=== PATIENT | female | born 1975 | race Caucasian/White ===

== ENCOUNTER 2024-08-03 12:59 | Emergency (ER) | payer OTHER, SELFPAY ==
[2024-08-03 12:59] VITALS: BP 142/102; PULSE 190; RESP 22; TEMP 37.2; O2SAT 99
--- OUTSIDE RECORDS SUMMARY | 2024-08-03 13:01 | XMS_ITS | Referral Summary ---
Author Organization [facility] Address [address] [place] [address] Care Team Providers Care Truck Washer Name Role Phone Matt Blount MD Primary Care Provider [phone] Allergies No known active allergies Medications traMADoL (ULTRAM) 50 mg tabletIndicatio ns:Pain Take 1 tablet (50 mg total) by mouth every 4 (four) hours as needed for pain 42 tablet 1 Active acetaminophen 500 mg capsule Take 2 capsules (1,000 mg total) by mouth every 6 (six) hours 30 tablet 1 Active cyclobenzaprine (FLEXERIL) 10 mg tabletIndicatio ns:Muscle Spasm Take 1 tablet (10 mg total) by mouth 3 (three) times a day as needed for muscle spasms 40 tablet 1 Active senna-docusate (PERICOLACE) 8.6-50 mg Take 2 tablets by mouth 2 (two) times a day 60 tablet 1 Active aspirin 325 mg tablet Take 1 tablet (325 mg total) by mouth daily for 14 days 14 tablet [address] (NexIUM) 40 mg capsule Take 1 capsule (40 mg total) by mouth daily before breakfast for 14 days To protect stomach while taking aspirin. 14 capsule 1 Active levonorgestreL (Mirena) IUD Mirena (52 MG) 20 MCG/24HR Intrauterine Intrauterine device QTY: 0 Days: 0 Refills: 0 Written: 08/24/17 Patient Instructions: 8 Active tobramycin (TOBREX) 0.3 % ophthalmic solution Administer 1-2 drops into affected eye(s) every 4 (four) hours 0 Active lisinopril-hydr oCHLOROthiazide (ZESTORETIC) 10-12.5 mg per tablet TK 1 T PO QD 9 Active atorvastatin (LIPITOR) 20 mg tablet 1 Active olmesartan-hydr ochlorothiazide (BENICAR HCT) 20-12.5 mg per tablet 1 Active amoxicillin 500 mg capsule Take 500 mg by mouth 2 (two) times a day 1 Active Ozempic 0.25 mg or 0.5 mg(2 mg/1.5 mL) pen injector injection INJECT 0.25 MG UNDER THE SKIN EVERY WEEK ON THE SAME DAY OF EACH WEEK 2 Active Active Problems Problem Noted Date Diagnosed Date Left medial tibial plateau fracture 08/26/2020 Tibial plateau fracture, left 08/25/2020 Overview (08/26/2020): Added automatically from request for surgery [id number] Heel spur 07/19/2015 Plantar fasciitis, right 07/19/2015 Immunizations Immunization Administration Dates Next Due Influenza, Trivalent, IM (MDV) 01/14/2016 Tdap 08/26/2020,01/06/2013 Social History Tobacco Use Types Packs/Day Years Used Date Smoking Tobacco: Every Day Cigarettes Comments:about 4 cigarettes a day Alcohol Use Standard Drinks/Week Comments No 0 (1 standard drink = 0.6 oz pur e alcohol) AUDIT-C Answer Date Recorded Q1: How often do you have a drink containing alc ohol? Monthly or less 08/26/2020 Q2: How many drinks containi ng alcohol do you have on a typical day when you are drinking? 1 or 2 08/26/2020 Q3: How often do you have si x or more drinks on one occasion? 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 Gender Identity Not on file Sexual Orientation Not on file Last Filed Vital Signs Vital Sign Reading Time Taken Comments Blood Pressure 121/60 08/26/2020 11:30 PM CDT Pulse 77 08/26/2020 11:30 PM CDT Temperature 37.1 C (98.8 F) 08/26/2020 11:30 PM CDT Respiratory Rate 18 08/26/2020 11:30 PM CDT Oxygen Saturation 99% 08/26/2020 11:30 PM CDT Inhaled Oxygen Concentration - - Weight 104.3 kg (230 lb) 08/25/2020 11:35 PM CDT Height 157.5 cm (5' 2) 08/25/2020 11:35 PM CDT Body Mass Index 42.07 08/25/2020 11:35 PM CDT Plan of Treatment Not on file Medical Devices Implanted Type Area Manager Credit Device Identifier Shelf Expiration Date Model / Serial / Lot [employer]/ Ortho [id number] Evos 3.5mm 36mm Self Tap Cortex Screw Bone Sterile - [id number] Implanted:Qty: 2 on 08/26/2020 by Elaine Mcgregor MD at [facility] Left: Tibia [employer]/Or tho [id number] / / [employer]/ Ortho [id number] Evos 3.5mm 42mm Self Tap Lock Screw Bone Sterile - [id number] Implanted:Qty: 1 on 08/26/2020 by Elaine Mcgregor MD at [facility] Left: Tibia [employer]Or tho [id number] / / [employer]/ Ortho [id number] Evos 117mm 8 Hole Tibia Left Proximal Medial Plate Bone Sterile - [id number] Implanted:Qty: 1 on 08/26/2020 by Elaine Mcgregor MD at [facility] Left: Tibia [employer]/Or tho [id number] / / [employer]/ Ortho [id number] Evos 3.5mm 38mm Self Tap Cortex Screw Bone Sterile - [id number] Implanted:Qty: 1 on 08/26/2020 by Elaine Mcgregor MD at [facility] Left: Tibia [employer]/Or tho [id number] / / [employer]/ Ortho [id number] Evos 3.5mm 50mm Self Tap Cortex Screw Bone Sterile - [id number] Implanted:Qty: 2 on 08/26/2020 by Elaine Mcgregor MD at [facility] Left: Tibia [employer]/Or tho [id number] / / [employer]/ Ortho [id number] Evos 3.5mm 24mm Self Tap Cortex Screw Bone Sterile - [id number] Implanted:Qty: 1 on 08/26/2020 by Elaine Mcgregor MD at [facility] Left: Tibia [employer]Or tho [id number] / / [employer]/ Ortho [id number] Evos 3.5mm 60mm Self Tap Lock Screw Bone Sterile - [id number] Implanted:Qty: 2 on 08/26/2020 by Elaine Mcgregor MD at [facility] Left: Tibia [employer]Or tho [id number] / / [employer]/ Ortho [id number] Evos 3.5mm 65mm Self Tap Lock Screw Bone Sterile - [id number] Implanted:Qty: 1 on 08/26/2020 by Elaine Mcgregor MD at [facility] Left: Tibia [employer]Or tho [id number] / / [employer]/ Ortho [id number] Evos 3.5mm 50mm Self Tap Lock Screw Bone Sterile - [id number] Implanted:Qty: 1 on 08/26/2020 by Elaine Mcgregor MD at [facility] Left: Tibia [employer]/Or tho [id number] / / [employer]/ Ortho [id number] Evos 3.5mm 46mm Self Tap Lock Screw Bone Sterile - [id number] Implanted:Qty: 1 on 08/26/2020 by Elaine Mcgregor MD at [facility] Left: Tibia [employer]/Or tho [id number] / / Explanted Type Area Manager Credit Device Identifier Shelf Expiration Date Model / Serial / Lot [employer] [id number] Isidro .062in 9in 1 Trocar Smooth Wire Fixation - [id number] Explanted:Qty: 1 on 08/26/2020 by Elaine Mcgregor MD at [facility] Left: Tibia [employer] [id number] / / [employer]/O rtho [id number] Evos 3.5mm 55mm Self Tap Cortex Screw Bone Sterile - [id number] Explanted:Qty: 1 on 08/26/[address] [facility] Left: Tibia [employer]Or tho [id number] / / Insurance [facility] CLAIMS OFFICE [facility] [employer] [place] Advance Directives For more information, please contact: [phone] * Full Code (Latest Code Status on File) Date Activated Date Inactivated Comments 08/26/2020 5:43 AM 08/27/2020 5:47 PM Care Teams Truck Washer Relationship Specialty Start Date End Date Matt Blount MD [address] [place] [address] PCP - General 03/31/11
--- OUTSIDE RECORDS SUMMARY | 2024-08-03 13:01 | XMS_ITS ---
Author Organization Unknown Address [address] [place] [phone] Phone Care Team Providers Care Transverse Abdominal Muscle Nurse Name Role Phone ROBERT MONTANEZ Attending Unavailable Immunization Immunization Date Status Additional Notes Code Code System Tdap 01/06/2013 Completed 115 CVX Tdap 08/26/2020 Completed 115 CVX Influenza, split virus, trivalent, preservative 01/14/2016 Completed 141 CVX Influenza, split virus, quadrivalent, PF 12/21/2022 Completed 150 CVX COVID-19, mRNA, LNP-S, PF, 3 0 mcg/0.3 mL dose 02/29/2020 Completed 208 CVX COVID-19, mRNA, LNP-S, PF, 3 0 mcg/0.3 mL dose 03/21/2020 Completed 208 CVX COVID-19, mRNA, LNP-S, PF, 3 0 mcg/0.3 mL dose 02/11/2021 Completed 208 CVX Results COMPREHENSIVE METABOLIC PANE L - Collect Date/Time: 12/06/2023 07:48 [facility] ID: [id number] [place], [place], [id number] LOINC: 83352-4 Test Value Unit Reference Range Code Code System Flag FASTING YES BUN 9 mg/dL L=7 H=20 3094-0 LOINC CREATININE 0.80 mg/dL L=0.52 H=1.04 2160-0 LOINC GLUCOSE 96 mg/dL L=74 H=106 2345-7 LOINC SODIUM 137 mmol/L L=132 H=144 2951-2 LOINC POTASSIUM 3.9 mmol/L L=3.5 H=5.1 2823-3 LOINC CHLORIDE 101 mmol/L L=98 H=107 2075-0 LOINC CO2 26.0 mmol/L L=22.0 H=30.0 8-9 LOINC ANION GAP 14 L=10 H=20 67924-7 LOINC OSMOLALITY 283 mOs/kG L=280 H=296 65731-8 LOINC BUN/CREAT 11.3 3097-3 LOINC CALCIUM 9.8 mg/dL L=8.3 H=10.5 52819-9 LOINC AST 28 U/L L=15 H=46 1920-8 LOINC ALT 26 U/L L=9 H=72 1742-6 LOINC ALKALINE PHOS 52 U/L L=38 H=126 6768-6 LOINC TOTAL BILI 1.1 mg/dL L=0.2 H=1.3 1975-2 LOINC ALBUMIN 4.7 G/dL L=3.5 H=5.0 1751-7 LOINC TOTAL PROTEIN 7.8 g/L L=6.3 H=8.2 2885-2 LOINC A/G RATIO 1.5 13450-4 LOINC AGE 48 77827-8 LOINC eGFR NON-AFR 81 ml/min eGFR AFR AMER 98 ml/min CBC W/ DIFF - Collect Date/T mary: 12/06/2023 07:48 [facility] ID: [id number] [address] [place], [place], [id number] LOINC: 64300-8 Test Value Unit Reference Range Code Code System Flag WBC 6.6 10^3uL L=4.8 H=10.8 RBC 4.33 10^6uL L=4.20 H=5.40 HEMOGLOBIN 13.6 g/dL L=12.0 H=16.0 718-7 LOINC HEMATOCRIT 40.1 VOL% L=37.0 H=47.0 4544-3 LOINC MCV 92.6 fL L=81.0 H=99.0 MCH 31.4 pg L=27.0 H=32.0 MCHC 33.9 g/dL L=32.0 H=36.0 PLATELETS 313 10^3uL L=100 H=400 41192-0 LOINC RDW 12.1 % L=11.7 H=15.5 %GRAN 55.3 % L=40.0 H=70.0 00123-9 LOINC %LYMPH 32.7 % L=20.0 H=45.0 736-9 LOINC %MONO 8.8 % L=2.0 H=10.0 86424-6 LOINC %EOS 2.4 % L=0.0 H=6.0 713-8 LOINC %BASO 0.6 % L=0.0 H=3.0 706-2 LOINC #NEUT 3.6 10^3uL L=1.9 H=7.6 18831-9 LOINC #LYMPH 2.2 10^3uL L=0.9 H=4.9 67894-5 LOINC #MONO 0.6 10^3uL L=0.1 H=0.9 24568-0 LOINC #EOS 0.2 10^3uL L=0.0 H=0.6 712-0 LOINC #BASO 0.04 10^3uL L=0.00 H=0.10 04307-9 LOINC #IM GRANS 0.0 10^3uL L=0.0 H=7.0 25249-2 LOINC %IM GRANS 0.2 % L=0.0 H=5.0 93450-8 LOINC %NRB 0.0 L=0.0 H=0.2 55334-0 LOINC #NRB 0.000 L=0.000 H=0.012 62575-9 LOINC MANUAL DIFF NOT INDICATED RBC MORPH NOT INDICATED LIPID PANEL - Collect Date/T mary: 12/06/2023 07:48 [facility] ID: [id number] [address] [place], [place], [id number] LOINC: 85539-5 Test Value Unit Reference Range Code Code System Flag FASTING YES CHOLESTEROL 122 mg/dL L=0 H=200 3-3 LOINC TRIGLYCERIDE 100 mg/dL L=0 H=150 2571-8 LOINC HDL 32 mg/dL L=40 H=60 2085-9 LOINC L LDL 62 mg/dL 2088-03 LOINC Social History Type Status Start Date End Date Code Code Syst em Sex Female Hospital Discharge Instructions Should you have any questions prior to discharge, please contact a member of your healthcare team. If you have left the hospital and have any questions, please contact your primary care physician. Reason For Referral No Data Found Plan of Treatment No Data Found Encounters Encounter Diagnosis Start Date Code Code Sys tem Mixed hyperlipidemia 12/06/2023 SNOMED- CT Personal Care Team Section Performer Name Performer Role Active Date Inactive LISSETH Peña PCP - Primary care physician 2022-09-11
--- OUTSIDE RECORDS SUMMARY | 2024-08-03 13:01 | XMS_ITS ---
Author Organization Unknown Address [address] [place] [phone] Phone Care Team Providers Care Measurement Psychologist Name Role Phone JOAN Ang Attending Unavailable ROBERT MONTANEZ Primary Unavailable Immunization Immunization Date Status Additional Notes [...] mL dose 02/11/2021 Completed 208 CVX Results DIG 3D SHAHANA SCREENING BILATER AL - Completed: 03/20/2023 15:10 LOINC: See Scanned Image Attachment for Report Dictated By: Trans Initials: [facility] Trans Date: 04/03/23 14:02 <<REPDIST>> Social History Type Status Start Date End [...] Diagnosis Start Date Code Code Sys tem Screening mammography 03/20/2023 [id number] SNOMED -CT Personal Care Team Section Performer Name Performer Role Active Date Inactive LISSETH Peña PCP - Primary care physician 2022-09-11 Imaging Narrative Notes [facility] 04/03/2023 14:02 [facility] [address] [place], [place] [address] RADIOLOGY REPORT Patient Number: [id number] Patient Name: HAYDEN GALARZA Type: O/P MR Number: [id number] : 1975 Age: 48 Sex: F Room #: Admit Date: 03/20/23 Discharge Date 03/20/23 Ordering Physician: JOAN Ang Family Physician: ROBERT GOLDEN [facility] Physician: X-Ray Number : [id number] DIG 3D SHAHANA SCREENING BILATERA 69312 COMPLETE:03/20/23 15:10 [id number] (REASONS-DIG 3D SHAHANA SCREENING BILATERAL: SCREENING See Scanned Image Attachment for Report Dictated By: Perfecto Initials: [place] Date: 04/03/23 14:02 <<REPDIST>>
--- OUTSIDE RECORDS SUMMARY | 2024-08-03 13:01 | XMS_ITS ---
Author Organization Unknown Address [address] [place] [phone] Phone Care Team Providers Care Side Panel Hanger Name Role Phone ROBERT MONTANEZ Attending Unavailable [...] mL dose 02/11/2021 Completed 208 CVX Results QUANTIFERON GOLD SINGLE TUBE - Collect Date/Time: 10/04/2023 08:37 [facility] ID: [id number] [place], [place], [id number] LOINC: 18886-5 Test Value Unit Reference Range Code Code System Flag SOURCE: BLOOD SEND TO [facility]? NO QuantiFERON Incubation Incubation performed. QuantiFERON-TB Gold Plus Negative Negative 65671-0 LOINC QuantiFERON Criteria COMMENT 8251-1 LOINC QuantiFERON TB1 Ag Value 0.11 41314-5 LOINC QuantiFERON TB2 Ag Value 0.11 51899-9 LOINC QuantiFERON Nil Value 0.01 75624-9 LOINC QuantiFERON Mitogen Value >10.00 71907-2 LOINC Social History Type Status Start Date [...] Diagnosis Start Date Code Code Sys tem Encounter for screening for respiratory tuberculosis 0 10/04/2023 SNOMED-CT Personal Care Team Section Performer Name Performer Role Active Date Inactive Da LISSETH Ott PCP - Primary care physician 2022-09-11
--- OUTSIDE RECORDS SUMMARY | 2024-08-03 13:01 | XMS_ITS | Clinical Summary ---
Author Organization [facility] Address [address] [place] [address] Care Team Providers Care Purse Seiner Name Role Phone Matt Blount MD Primary Care Provider [phone] Allergies No known active allergies Medications traMADoL [...] (08/26/2020): Added automatically from request for surgery [id number] Heel spur 07/19/2015 Plantar fasciitis, right 07/19/2015 Immunizations Immunization Administration Dates Next Due Influenza, Trivalent, IM (MDV) 01/14/2016 Tdap 08/26/2020,01/06/2013 Surgical History Surgery Date Site/Laterality Comments OTHER SURGICAL HISTORY Gall bladder disease: Lap [place] OTHER SURGICAL HISTORY 2006 : OTHER SURGICAL HISTORY 2006 : Medical History Medical History Date Comments Hx Other Medical 2004 Gall bladder di sease Hx Other Medical 2006 ; Outc ome: 32 week 3 lb(s) 13 oz Male Hx Other Medical 2006 ; Outc ome: 32 week 3 lb(s) 3 oz Female Hypertension Family History Medical History Relation Name Comments Breast cancer Maternal Grandmother Cancer , breast; Asthma Mother Asthma; Hypertension Mother Hypertension; Rheum arthritis Mother Rheumatoid a rthritis; Colon cancer Paternal Grandmother Cancer, colon; Relation Name Status Comments Maternal Grandmother Alive Mother Paternal Grandmother Alive Social History Tobacco Use Types Packs/Day Years [...] on file Legal 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 Gender Identity Not on file Sexual Orientation Not on file Obstetrics History Last Filed Vital Signs Vital Sign Reading [...] 08/25/2020 11:35 PM CDT Plan of Treatment Health Maintenance Due Date Last Done Comments Breast Cancer Screening-Mammogram 1975 Cervical Cancer Screening 1975 Colon Cancer Screening-Colonoscopy 1975 Depression Screening 1975 Hepatitis C Screening 1975 Hepatitis B Screening 01/18/1992 Regular Well Visit/Exam 18-64 01/18/1992 Pneumococcal vaccine <65 (1 of 2 - PCV) 1993 Covid-19 Vaccine (3 - season) 11/11/202312/2020, 02/29/2020 Zoster Vaccine (1 of 2) 01/18/2024 Influenza Vaccine (Season Ended) 2024 01/14/20 16 DTaP/Tdap/Td Vaccine (3 - Td or Tdap) 08/26/2030, 01/06/2013 Medical Devices Implanted Type Area Park Activities Coordinator Device Identifier Shelf Expiration Date Model / Serial / Lot [employer]/ Ortho [id number] Evos 3.5mm 36mm Self Tap Cortex Screw Bone Sterile - [id number] Implanted:Qty: 2 on 08/26/2020 by Elaine Mcgregor MD at [facility] Left: Tibia [employer] tho [id number] / / [employer] Ortho [id number] Evos 3.5mm 42mm Self Tap Lock Screw Bone Sterile - [id number] Implanted:Qty: 1 on 08/26/2020 by Elaine Mcgregor MD at [facility] Left: Tibia [employer]Or tho [id number] / / [employer] Ortho [id number] Evos 117mm 8 Hole Tibia Left Proximal Medial Plate Bone Sterile - [id number] Implanted:Qty: 1 on 08/26/2020 by Elaine Mcgregor MD at [facility] Left: Tibia [employer] [id number] / / [employer] Ortho [id number] Evos 3.5mm 38mm Self Tap Cortex Screw Bone Sterile - [id number] Implanted:Qty: 1 on 08/26/2020 by Elaine Mcgregor MD at [facility] Left: Tibia [employer]Or tho [id number] / / [employer]/ Ortho [id number] Evos 3.5mm 50mm Self Tap Cortex Screw Bone Sterile - [id number] Implanted:Qty: 2 on 08/26/2020 by Elaine Mcgregor MD at [facility] Left: Tibia [employer]Or tho [id number] / / [employer]/ Ortho [id number] Evos 3.5mm 24mm Self Tap Cortex Screw Bone Sterile - [id number] Implanted:Qty: 1 on 08/26/2020 by Elaine Mcgregor MD at [facility] Left: Tibia [employer] [id number] / / [employer]/ Ortho [id number] Evos 3.5mm 60mm Self Tap Lock Screw Bone Sterile - [id number] Implanted:Qty: 2 on 08/26/2020 by Elaine Mcgregor MD at [facility] Left: Tibia [employer] tho [id number] / / [employer]/ Ortho [id number] Evos 3.5mm 65mm Self Tap Lock Screw Bone Sterile - [id number] Implanted:Qty: 1 on 08/26/2020 by Elaine Mcgregor MD at [facility] Left: Tibia [employer]Or [employer] [id number] / / [employer]/ Ortho [id number] Evos 3.5mm 50mm Self Tap Lock Screw Bone Sterile - [id number] Implanted:Qty: 1 on 08/26/2020 by Elaine Mcgregor MD at [facility] Left: Tibia [employer] [id number] / / [employer]/ Ortho [id number] Evos 3.5mm 46mm Self Tap Lock Screw Bone Sterile - [id number] Implanted:Qty: 1 on 08/26/2020 by Elaine Mcgregor MD at [facility] Left: Tibia [employer]Or tho [id number] / / Explanted Type Area Park Activities Coordinator Device Identifier Shelf Expiration Date Model / Serial / Lot [employer] [id number] Isidro .062in 9in 1 Trocar Smooth Wire Fixation - [id number] Explanted:Qty: 1 on 08/26/2020 by Elaine Mcgregor MD at [facility] Left: Tibia [employer] [id number] / / [employer]/O rtho [id number] Evos 3.5mm 55mm Self Tap Cortex Screw Bone Sterile - [id number] Explanted:Qty: 1 on 08/26/2020 at [facility] Left: Tibia [employer]Or tho [id number] / / Insurance [employer] CLAIMS OFFICE [facility] [employer] [place] Advance Directives For more information, please contact: [phone] * Full Code (Latest Code Status on File) Date Activated Date Inactivated Comments 08/26/2020 5:43 AM 08/27/2020 5:47 PM Care Teams Purse Seiner Relationship Specialty Start Date End Date Matt Blount MD [address] [place] [address] PCP - General 03/31/11
--- OUTSIDE RECORDS SUMMARY | 2024-08-03 13:01 | XMS_ITS ---
Author Organization Unknown Address [address] [place] [phone] Phone Care Team Providers Care Drag Down Name Role Phone ROBERT MONTANEZ Attending Unavailable [...] mL dose 02/11/2021 Completed 208 CVX Results US ECHO W/ COLOR - Completed : 03/22/2023 14:44 LOINC: See Scanned Image Attachment for Report Dictated By: Trans Initials: Trans Date: 04/03/23 11:51 <<REPDIST>> Social History Type Status Start Date [...] Diagnosis Start Date Code Code Sys tem Heart murmur 03/22/2023 [id number] SNOMED-CT Personal Care Team Section Performer Name Performer Role Active Date Inactive Da LISSETH Ott PCP - Primary care physician 2022-09-11 Imaging Narrative Notes [facility] 04/03/2023 11:51 [place] [id number] [place], [place] [address] RADIOLOGY REPORT Patient Number: [id number] Patient Name: HAYDEN GALARZA Type: O/P MR Number: [id number] : 1975 Age: 48 Sex: F Room #: Admit Date: 03/22/23 Discharge Date 03/22/23 Ordering Physician: ROBERT MONTANEZ Family Physician: ROBERT GOLDEN Second Physician: X-Ray Number : [id number] US ECHO W/ COLOR [id number] COMPLETE:03/22/23 14:44 TLS [id number] (REASON-ECHO COMPLTE: MURMUR See Scanned Image Attachment for Report Dictated By: Perfecto Initials: leanna [place] Date: 04/03/23 11:51 <<REPDIST>>
--- OUTSIDE RECORDS SUMMARY | 2024-08-03 13:01 | XMS_ITS ---
Author Organization Unknown Address [id number] [place] [phone] Phone Care Team Providers Care Registered Mail Clerk Name Role Phone ROBERT MONTANEZ Attending Unavailable [...] COMPREHENSIVE METABOLIC PANE L - Collect Date/Time: 03/30/2023 08:37 [facility] ID: [id number] [place], [place], [id number] LOINC: 46345-1 Test Value Unit Reference Range Code Code System Flag FASTING UNKNOWN BUN 13 mg/dL L=7 H=20 3094-0 LOINC CREATININE 0.70 mg/dL L=0.52 H=1.04 2160-0 LOINC GLUCOSE 104 mg/dL L=74 H=106 2345-7 LOINC SODIUM 138 mmol/L L=132 H=144 2951-2 LOINC POTASSIUM 4.1 mmol/L L=3.5 H=5.1 2823-3 LOINC CHLORIDE 103 mmol/L L=98 H=107 2075-0 LOINC CO2 27.0 mmol/L L=22.0 H=30.0 2027-9 LOINC ANION GAP 12 L=10 H=20 93805-1 LOINC OSMOLALITY 286 mOs/kG L=280 H=296 22556-8 LOINC BUN/CREAT 18.6 3097-3 LOINC CALCIUM 9.4 mg/dL L=8.3 H=10.5 42126-5 LOINC AST 29 U/L L=15 H=46 1920-8 LOINC ALT 25 U/L L=9 H=72 1742-6 LOINC ALKALINE PHOS 56 U/L L=38 H=126 6768-6 LOINC TOTAL BILI 0.9 mg/dL L=0.2 H=1.3 1975-2 LOINC ALBUMIN 4.3 G/dL L=3.5 H=5.0 1751-7 LOINC TOTAL PROTEIN 7.6 g/L L=6.3 H=8.2 2885-2 LOINC A/G RATIO 1.3 30212-5 LOINC AGE 48 87531-9 LOINC eGFR NON-AFR 95 ml/min eGFR AFR AMER 115 ml/min LIPID PANEL - Collect Date/T mary: 03/30/2023 08:37 [facility] ID: [id number] [place], [id number] LOINC: 38090-7 Test Value Unit Reference Range Code Code System Flag FASTING UNKNOWN CHOLESTEROL 154 mg/dL L=0 H=200 2092-3 LOINC TRIGLYCERIDE 80 mg/dL L=0 H=150 2570-8 LOINC HDL 46 mg/dL L=40 H=60 2084-9 LOINC LDL 87 mg/dL 2088- LOINC CBC W/ DIFF - Collect Date/T mary: 03/30/2023 08:37 [facility] ID: [id number] [place], [place], [phone] LOINC: 52275-1 Test Value Unit Reference Range Code Code System Flag WBC 6.1 10^3uL L=4.8 H=10.8 RBC 4.19 10^6uL L=4.20 H=5.40 L HEMOGLOBIN 13.2 g/dL L=12.0 H=16.0 718-7 LOINC HEMATOCRIT 38.7 VOL% L=37.0 H=47.0 4544-3 LOINC MCV 92.4 fL L=81.0 H=99.0 MCH 31.5 pg L=27.0 H=32.0 MCHC 34.1 g/dL L=32.0 H=36.0 PLATELETS 307 10^3uL L=100 H=400 59419-5 LOINC RDW 11.6 % L=11.7 H=15.5 L %GRAN 60.9 % L=40.0 H=70.0 21817-9 LOINC %LYMPH 30.2 % L=20.0 H=45.0 736-9 LOINC %MONO 6.8 % L=2.0 H=10.0 84192-6 LOINC %EOS 1.2 % L=0.0 H=6.0 713-8 LOINC %BASO 0.7 % L=0.0 H=3.0 706-2 LOINC #NEUT 3.7 10^3uL L=1.9 H=7.6 23538-3 LOINC #LYMPH 1.8 10^3uL L=0.9 H=4.9 41386-9 LOINC #MONO 0.4 10^3uL L=0.1 H=0.9 43771-8 LOINC #EOS 0.1 10^3uL L=0.0 H=0.6 712-0 LOINC #BASO 0.04 10^3uL L=0.00 H=0.10 63203-1 LOINC #IM GRANS 0.0 10^3uL L=0.0 H=7.0 02988-8 LOINC %IM GRANS 0.2 % L=0.0 H=5.0 97878-8 LOINC %NRB 0.0 L=0.0 H=0.2 61474-6 LOINC #NRB 0.000 L=0.000 H=0.012 37555-0 LOINC MANUAL DIFF NOT INDICATED RBC MORPH NOT INDICATED CPK - Collect Date/Time: 08:37 [facility] ID: [id number] [place], [place], [id number] LOINC: 2157-6 Test Value Unit Reference Range Code Code System Flag CPK 52 U/L L=30 H=170 7-6 LOINC HGB A1C -GLYCOHEMOGLOBIN - C ollect Date/Time: 03/30/2023 08:37 [facility] ID: [id number] [place] [address], [id number] LOINC: 4548-4 Test Value Unit Reference Range Code Code System Flag HGBA1C 5.2 % 4548-4 LOINC URINALYSIS w/Microscopy/C&S if indicated - Collect Date/Time: 03/30/2023 08:35 [facility] ID: [id number] [place], [place], [id number] LOINC: 45707-0 Test Value Unit Reference Range Code Code System Flag UR SOURCE CLEAN CATCH 22418-3 LOINC COLOR YELLOW YELLOW 5778-6 LOINC CLARITY CLEAR CLEAR 63579-5 LOINC SPEC GRAVITY 1.020 1.000-1.030 5811-5 LOINC PH 7.0 5.0 - 6.5 5803-2 LOINC LEUK EST NEGATIVE NEGATIVE 5799-2 LOINC NITRATE NEGATIVE NEGATIVE PROTEIN NEGATIVE NEGATIVE 5804-0 LOINC GLUCOSE NEGATIVE NEGATIVE 43063-2 LOINC KETONES NEGATIVE NEGATIVE 71821-3 LOINC UROBILINOGEN 1.0 NEGATIVE 5818-0 LOINC BILIRUBIN NEGATIVE NEGATIVE 51265-4 LOINC BLOOD NEGATIVE NEGATIVE 91688-6 LOINC WBC 0-2 0 - 2 13400-5 LOINC RBC 0-2 0 - 2 38475-5 LOINC EPITHELIAL MANY RARE-FEW 88863-0 LOINC A BACTERIA 1+ NONE SEEN 55715-0 LOINC MUCUS NONE SEEN NONE SEEN 8247-9 LOINC YEAST NOT PRESENT NOT PRESENT 03902-9 LOINC CASTS NONE SEEN 57581-6 LOINC CRYSTALS NONE SEEN 19385-5 LOINC CULTURE? NO 8251-1 LOINC DIAGNOSIS N/A Social History Type Status Start Date End [...] Diagnosis Start Date Code Code Sys tem Urinary tract infection, site not specified 03/30/2023 SNOMED-CT Personal Care Team Section Performer Name Performer Role Active Date Inactive LISSETH Peña PCP - Primary care physician 2022-09-11
--- OUTSIDE RECORDS SUMMARY | 2024-08-03 13:01 | XMS_ITS | Clinical Summary ---
Author Organization [facility] Address [address] [facility] [address], [place] [address] Phone Care Team Providers Care Transportation Program Director Name Role Phone Gerry Montalvo DPM Unavailable [phone] Matt Blount MD Primary Care Provider [phone] Allergies No known active allergies Medications lisinopril-hydroCHL OROthiazide (PRINZIDE, ZESTORETIC) 10-12.5 MG Tablet TK 1 T PO QD 9 Active SIMVASTATIN PO Take by mouth. Active tobramycin (TOBREX) 0.3 % SolutionIndications :Acute conjunctivitis of right eye, unspecified acute conjunctivitis type Place 1-2 Drops in right eye every 4 hours. 1 Bottle 0 Active olmesartan-hydrochl orothiazide (BENICAR HCT) 20-12.5 MG Tablet 1 Active Active Problems Problem Noted Date Diagnosed Date Heel spur 07/19/2015 Plantar fasciitis, right 07/19/2015 Immunizations Immunization Administration Dates Next Due Covid-19, Mrna, Lnp-s, Pf, 30 Mcg/0.3 Ml Dose (P gianna) 03/21/2020,02/29/2020 Influenza Vaccine greater than 3 yrs 01/14/2016 Influenza Vaccine, Quadrivalent, PF 01/04/2022 Family History Medical History Relation Name Comments Breast Cancer Maternal Grandmother Relation Name Status Comments Maternal Grandmother Social History Tobacco Use Types Packs/Day Years Used Date Smoking Tobacco: Never Smokeless Tobacco: Never Tobacco Cessation:Counseling Given: Yes Alcohol Use Standard Drinks/Week Comments Yes 2 (1 standard drink = 0.6 oz pur e alcohol) Comments No Sex and Gender Information Value Date Recorded Sex Assigned at Not on file Legal Sex Female 7:39 PM CDT Gender Identity Not on file Sexual Orientation Not on file Last Filed Vital Signs Vital Sign Reading Time Taken Comments Blood Pressure 112/80 04/12/2021 8:14 AM [facility]BA BUSINESS DEVELOPMENT OFFICER Pulse 75 04/12/2021 8:14 AM [facility]BA BUSINESS DEVELOPMENT OFFICER Temperature 36.4 C (97.5 F) 04/12/2021 8:14 AM [facility] BUSINESS DEVELOPMENT OFFICER Respiratory Rate 16 04/12/2021 8:14 AM [facility] BUSINESS DEVELOPMENT OFFICER Oxygen Saturation 97% 04/12/2021 8:14 AM [facility]BA BUSINESS DEVELOPMENT OFFICER Inhaled Oxygen Concentration - - Weight 112 kg (247 lb) 04/12/2021 8:14 AM [facility]BA BUSINESS DEVELOPMENT OFFICER Height 157.5 cm (5' 2) 10/09/2018 5:21 PM CDT Body Mass Index 45.18 10/09/2018 5:21 PM CDT Plan of Treatment Health Maintenance Due Date Last Done Comments Hepatitis C Virus (HCV) Screening 1975 Hepatitis B Immunization (1 of 3 - 19+ 3-dose series) 1993 Colonoscopy 2019 Colorectal Cancer Screening 2019 SARS-COV-2 Immunization ( season) 2023 02/11/2021, 03/21/2020, 02/29/2020 Cologuard 01/18/2024 Immunochemical Fecal Occult Blood 01/18/2024 Pneumococcal Immunization (5 0+ years) (1 of 1 - PCV) 01/18/2024 Zoster Immunization (1 of 2) 01/18/2024 Influenza Immunization (Seas on Ended) 2024 01/04/2022, 01/14/2016 Respiratory Syncytial Virus (RSV) Immunization (Adult) (1 - 1-dose 75+ series) 2049 TdaP Immunization Completed 08/26/2020, 01/06/2013 Discussion re Starting/Frequency of Mammograms Discontinued 03/01/2021, 09/01/2017 Mammogram Discontinued 03/01/2021, 09/01/2017 Human Papillomavirus (HPV) Immunization Aged Out No longer eligible based on patient's age to complete this topic Meningococcal Immunization (ACWY) Aged Out No longer eligible based on patient's age to complete this topic Rotavirus Immunization Aged Out No lo nger eligible based on patient's age to complete this topic Procedures Procedure Name Priority Date/Time Associated Diagnosis Comments SHAHANA SCREENING BILATERAL DIGITAL W CAD W RIAN Routine 03/01/2021 7:36 AM SBA BUSINESS DEVELOPMENT OFFICER Encounter for screening mammogram for malignant neoplasm of breast from Last 3 Months or Most Recently Relevant to Health Maintenance Results * SHAHANA SCREENING BILATERAL DIGITAL W CAD W RIAN (03/01/2021 7:36 AM [facility]BA BUSINESS DEVELOPMENT OFFICER) Anatomical Region Laterality Modality breast Bilateral Mammography 03/01/2021 7:18 AM [facility]BA BUSINESS DEVELOPMENT OFFICER Narrative 03/01/2021 5:09 PM SBA BUSINESS DEVELOPMENT OFFICER - SHAHANA SCREENING BILATERAL DIGITAL W CAD W RIAN BILATERAL DIGITAL SCREENING MAMMOGRAM 3D/2D WITH CAD WITH MEDIOLATERAL OBLIQUE CRANIOCAUDAL: 03/01/2021 The study was acquired using digital technology and interpreted from soft copy. Current study was also evaluated with ICAD version 7.2. 2D digital mammographic views, as well as 3D digital tomosynthesis were performed in the CC and MLO projections. CLINICAL: Routine screening. Patient has no complaints. No personal history of cancer. Maternal grandmother had breast cancer. COMPARISONS: Comparison is made to exam dated: 09/01/2017 [facility]. BREAST TISSUE:There are scattered fibroglandular densities in both breasts. FINDINGS: No significant masses, calcifications, or other findings are seen in either breast. There has been no significant interval change. IMPRESSION: BI-RAD 1 NEGATIVE There is no mammographic evidence of malignancy. A 1 year screening mammogram is recommended. The patient has been or will be contacted. The patient will be entered into a reminder system with a target due date of 1 year for her next screening exam. Electronically signed by: Bryant roche/savannah:03/01/2021 16:32:[address] Forms(s): RT Edis(R)(M), [facility] letter sent: Normal Exam Reading location: [facility] BI-RADS: 1 Negative Procedure Note Bryant Paul MD - 03/01/2021 - SHAHANA SCREENING BILATERAL DIGITAL W CAD W RIAN BILATERAL DIGITAL SCREENING MAMMOGRAM 3D/2D WITH CAD WITH MEDIOLATERAL OBLIQUE CRANIOCAUDAL: 03/01/2021 The study was acquired using digital technology and interpreted from soft copy. Current study was also evaluated with ICAD version 7.2. 2D digital mammographic views, as well as 3D digital tomosynthesis were performed in the CC and MLO projections. CLINICAL: Routine screening. Patient has no complaints. No personal history of cancer. Maternal grandmother had breast cancer. COMPARISONS: Comparison is made to exam dated: 09/01/2017 [facility]. BREAST TISSUE:There are scattered fibroglandular densities in both breasts. FINDINGS: No significant masses, calcifications, or other findings are seen in either breast. There has been no significant interval change. IMPRESSION: BI-RAD 1 NEGATIVE There is no mammographic evidence of malignancy. A 1 year screening mammogram is recommended. The patient has been or will be contacted. The patient will be entered into a reminder system with a target due date of 1 year for her next screening exam. Electronically signed by: Bryant roche/savannah:03/01/2021 16:32:[address] Forms(s): RT Edis(R)(M), [facility] letter sent: Normal Exam Reading location: [place] BI-RADS: 1 Negative Karrie Gutierrez PLASTIC SURGERY SPECIALIST, SENIOR COPYWRITER IMG MAMMO ORDERABLES Fin al Result from Last 3 Months or Most Recently Relevant to Health Maintenance Insurance [facility] [employer] Care Teams Transportation Program Director Relationship Specialty Start Date End Date Matt Blount MD [address] [place] [address] PCP - General Family Medicine 07/19/15 Gerry Montalvo DPM Podiatry 07/19/15
--- OUTSIDE RECORDS SUMMARY | 2024-08-03 13:01 | XMS_ITS | Encounter Summary ---
Author Organization [facility] Address [address] [place] [address] Phone Care Team Providers Care Aircraft Inspector Name Role Phone Gerry Montalvo DPM Unavailable [phone] Matt Blount MD Primary Care Provider [phone] Encounter Details Date Type Department Care Team (Late st Contact Info) Description 03/22/2021 Lab Requisition [facility] [address] [place] [address] Dilan Ibrahim MD [address] [place] [address] Other specified symptoms and signs involving the circulatory and respiratory systems Social History Tobacco Use Types Packs/Day Years Used Date Smoking Tobacco: Never Smokeless Tobacco: Never Alcohol Use Standard Drinks/Week Comments Yes 2 (1 standard drink = 0.6 oz pur e alcohol) Comments No Sex and Gender Information Value Date Recorded Sex Assigned at Not on file Legal Sex Female 7:39 PM CDT Gender Identity Not on file Sexual Orientation Not on file COVID-19 Exposure Response Date Recorded In the last month, have you been in contact with someone who was confirmed or suspected to have Coronavirus / COVID-19? No / Unsure 03/14/2021 2:57 PM BUSINESS TEAM LEADER documented as of this encounter Plan of Treatment Not on file documented as of this encounter Procedures Procedure Name Priority Date/Time Associated Diagnosis Comments SARS-COV-2 BY MOLECULAR Routine 03/22/2021 12:30 PM BUSINESS TEAM LEADER Other specified symptoms and signs involving the circulatory and respiratory systems documented in this encounter Results * SARS-COV-2 BY MOLECULAR (03/22/2021 12:30 PM BUSINESS TEAM LEADER) SARSCOV2 NOT DETECTED (Referenc e Range for this test is Not Detected) [facility] ID NOW 03/22/2021 3:05 PM BUSINESS TEAM LEADER [facility] Comment:This test was perfor med by a MOLECULAR, NON-PCR method Other No Phlebotomy Charged / Unknown 03/22/2021 12:30 PM BUSINESS TEAM LEADER 03/22/2021 12:56 PM BUSINESS TEAM LEADER Narrative [facility] - 03/22/2021 3:05 PM BUSINESS TEAM LEADER This test has been authorized by the FDA under an Emergency Use Authorization (EUA) only. Negative results should be treated as presumptive and, if inconsistent with clinical signs and symptoms or necessary for patient management, the patient should be tested with an alternative molecular assay. Negative results do not preclude SARS-CoV-2 infection or any other respiratory pathogen. Additional information for Clinicians can be found at: https://www.fda.gov/media/858508/download Additional information for Patients can be found at: https://www.fda.gov/media/276220/download Dilan Ibrahim MD MICROBIOLOGY - GENERAL ORDERAB LES Final Result [facility] [address] [place] [address] documented in this encounter Visit Diagnoses Diagnosis Other specified symptoms and signs involving the circulatory and respiratory systems documented in this encounter Additional Health Concerns Infection Onset Date Last Indicated Resolved Time COVID - 19 03/22/2021 03/22/2021 04/11/2021 12:1 6 AM BUSINESS TEAM LEADER documented as of this encounter Care Teams Aircraft Inspector Relationship Specialty Start Date End Date Matt Blount MD [address] [place] [address] PCP - General Family Medicine 07/19/15 Gerry Montalvo DPM Podiatry 07/19/15 documented as of this encounter
--- NOTE | 2024-08-03 13:03 | ECG_ITS ---
Test Date: 2024-08-03 13:05:48 Measurements Intervals [place] Rate: 190 P: 0 TN: 0 QRS: 108 QRSD: 106 T: 26 QT: 229 QTc: 408 Interpretive Statements SUPRAVENTRICULAR TACHYCARDIA MARKED RIGHT AXIS DEVIATION [QRS AXIS > 100] NONSPECIFIC ST & T-WAVE ABNORMALITY WARNING: DATA QUALITY MAY AFFECT INTERPRETATION No previous ECG available for comparison Electronically Signed On 08-03-2024 20:47:09 CDT by Ehsan Massey M.D.
--- OUTSIDE RECORDS SUMMARY | 2024-08-03 13:05 | XMS_ITS ---
Author Organization Unknown Address [address] [place] [phone] Phone Care Team Providers Care Staffing And Scheduling Coordinator Name Role Phone ROBERT MONTANEZ Attending Unavailable [...] SINGLE TUBE - Collect Date/Time: 10/04/2023 08:37 [facility] ID: [id number] [place] [address], [phone] LOINC: 03824-6 Test Value Unit Reference Range Code Code System Flag SOURCE: BLOOD SEND TO [facility]? NO QuantiFERON Incubation Incubation performed. QuantiFERON-TB Gold Plus Negative Negative 73202-7 LOINC QuantiFERON Criteria COMMENT 8251-1 LOINC QuantiFERON TB1 Ag Value 0.11 69303-0 LOINC QuantiFERON TB2 Ag Value 0.11 21242-7 LOINC QuantiFERON Nil Value 0.01 09944-9 LOINC QuantiFERON Mitogen Value >10.00 81011-5 LOINC Social History Type Status Start Date [...]
--- OUTSIDE RECORDS SUMMARY | 2024-08-03 13:05 | XMS_ITS ---
Author Organization Unknown Address [address] [place] [phone] Phone Care Team Providers Care Chemical Plant Operator Supervisor Name Role Phone JOAN Ang Attending Unavailable [...] Attachment for Report Dictated By: Trans Initials: [facility] Trans Date: 04/03/23 14:02 <<REPDIST>> Social [...] Code Code Sys tem Screening mammography 03/20/2023 [id number] SNOMED -CT Personal Care Team Section Performer Name Performer Role Active Date Inactive LISSETH Peña PCP - Primary care physician 2022-09-11 Imaging Narrative Notes [facility] 04/03/2023 14:02 [facility] [address] [place], [place] [address] RADIOLOGY REPORT Patient Number: [id number] Patient Name: HAYDEN GALARZA Type: O/P MR Number: [id number] : 1975 Age: 48 Sex: F Room #: Admit Date: 03/20/23 Discharge Date 03/20/23 Ordering Physician: JOAN Ang Family Physician: ROBERT GOLDEN [facility] Physician: X-Ray Number : [id number] DIG 3D SHAHANA SCREENING BILATERA [id number] COMPLETE:03/20/23 15:10 [id number] (REASONS-DIG 3D SHAHANA SCREENING BILATERAL: SCREENING See Scanned Image Attachment for Report Dictated By: Perfecto Initials: [place] Date: 04/03/23 14:02 <<REPDIST>>
--- OUTSIDE RECORDS SUMMARY | 2024-08-03 13:05 | XMS_ITS ---
Author Organization Unknown Address [address] [place] [phone] Phone Care Team Providers Care English Division Chair Name Role Phone ROBERT MONTANEZ Attending Unavailable [...] PANE L - Collect Date/Time: 03/30/2023 08:37 [facility] ID: [id number] [place], [place], [id number] LOINC: 89361-2 Test Value Unit Reference Range Code Code [...] 2027-9 LOINC ANION GAP 12 L=10 H=20 65806-9 LOINC OSMOLALITY 286 mOs/kG L=280 H=296 31340-4 LOINC BUN/CREAT 18.6 3097-3 LOINC CALCIUM 9.4 mg/dL L=8.3 H=10.5 01397-1 LOINC AST 29 U/L L=15 H=46 1920-8 LOINC ALT 25 U/L L=9 H=72 1742-6 LOINC ALKALINE PHOS 56 U/L L=38 H=126 6768-6 LOINC TOTAL BILI 0.9 mg/dL L=0.2 H=1.3 1975-2 LOINC ALBUMIN 4.3 G/dL L=3.5 H=5.0 1751-7 LOINC TOTAL PROTEIN 7.6 g/L L=6.3 H=8.2 2885-2 LOINC A/G RATIO 1.3 14612-5 LOINC AGE 48 81068-6 LOINC eGFR NON-AFR 95 ml/min eGFR AFR AMER 115 ml/min LIPID PANEL - Collect Date/T mary: 03/30/2023 08:37 [facility] ID: [id number] [place], [id number] LOINC: 19816-9 Test Value Unit Reference Range Code Code System Flag FASTING UNKNOWN CHOLESTEROL 154 mg/dL L=0 H=200 2092-3 LOINC TRIGLYCERIDE 80 mg/dL L=0 H=150 2570-8 LOINC HDL 46 mg/dL L=40 H=60 2084-9 LOINC LDL 87 mg/dL 2088- LOINC CBC W/ DIFF - Collect Date/T mary: 03/30/2023 08:37 [facility] ID: [id number] [place], [id number] LOINC: 29093-1 Test Value Unit Reference Range Code Code System Flag WBC 6.1 10^3uL L=4.8 H=10.8 RBC 4.19 10^6uL L=4.20 H=5.40 L HEMOGLOBIN 13.2 g/dL L=12.0 H=16.0 718-7 LOINC HEMATOCRIT 38.7 VOL% L=37.0 H=47.0 4544-3 LOINC MCV 92.4 fL L=81.0 H=99.0 MCH 31.5 pg L=27.0 H=32.0 MCHC 34.1 g/dL L=32.0 H=36.0 PLATELETS 307 10^3uL L=100 H=400 82069-2 LOINC RDW 11.6 % L=11.7 H=15.5 L %GRAN 60.9 % L=40.0 H=70.0 52499-4 LOINC %LYMPH 30.2 % L=20.0 H=45.0 736-9 LOINC %MONO 6.8 % L=2.0 H=10.0 91243-6 LOINC %EOS 1.2 % L=0.0 H=6.0 713-8 LOINC %BASO 0.7 % L=0.0 H=3.0 706-2 LOINC #NEUT 3.7 10^3uL L=1.9 H=7.6 02001-7 LOINC #LYMPH 1.8 10^3uL L=0.9 H=4.9 15125-0 LOINC #MONO 0.4 10^3uL L=0.1 H=0.9 37123-5 LOINC #EOS 0.1 10^3uL L=0.0 H=0.6 712-0 LOINC #BASO 0.04 10^3uL L=0.00 H=0.10 43857-6 LOINC #IM GRANS 0.0 10^3uL L=0.0 H=7.0 18059-0 LOINC %IM GRANS 0.2 % L=0.0 H=5.0 67345-8 LOINC %NRB 0.0 L=0.0 H=0.2 60094-1 LOINC #NRB 0.000 L=0.000 H=0.012 51565-3 LOINC MANUAL DIFF NOT INDICATED RBC MORPH NOT INDICATED CPK - Collect Date/Time: 08:37 [facility] ID: [id number] [place], [place], [id number] LOINC: 2157-6 Test Value Unit Reference Range Code Code System Flag CPK 52 U/L L=30 H=170 2157-6 LOINC HGB A1C -GLYCOHEMOGLOBIN - C ollect Date/Time: 03/30/2023 08:37 [facility] ID: [id number] [place] [address], [id number] LOINC: 4548-4 Test Value Unit Reference Range Code Code System Flag HGBA1C 5.2 % 4548-4 LOINC URINALYSIS w/Microscopy/C&S if indicated - Collect Date/Time: 03/30/2023 08:35 [facility] ID: [id number] [place], [id number] LOINC: 02598-1 Test Value Unit Reference Range Code Code System Flag UR SOURCE CLEAN CATCH 25060-6 LOINC COLOR YELLOW YELLOW 5778-6 LOINC CLARITY CLEAR CLEAR 40963-1 LOINC SPEC GRAVITY 1.020 1.000-1.030 5811-5 LOINC PH 7.0 5.0 - 6.5 5803-2 LOINC LEUK EST NEGATIVE NEGATIVE 5799-2 LOINC NITRATE NEGATIVE NEGATIVE PROTEIN NEGATIVE NEGATIVE 5804-0 LOINC GLUCOSE NEGATIVE NEGATIVE 93465-1 LOINC KETONES NEGATIVE NEGATIVE 59671-4 LOINC UROBILINOGEN 1.0 NEGATIVE 5818-0 LOINC BILIRUBIN NEGATIVE NEGATIVE 30448-9 LOINC BLOOD NEGATIVE NEGATIVE 46688-0 LOINC WBC 0-2 0 - 2 33253-9 LOINC RBC 0-2 0 - 2 86297-8 LOINC EPITHELIAL MANY RARE-FEW 42621-4 LOINC A BACTERIA 1+ NONE SEEN 31023-3 LOINC MUCUS NONE SEEN NONE SEEN 8247-9 LOINC YEAST NOT PRESENT NOT PRESENT 32247-6 LOINC CASTS NONE SEEN 69690-1 LOINC CRYSTALS NONE SEEN 46265-0 LOINC CULTURE? NO 8251-1 LOINC DIAGNOSIS N/A [...]
--- OUTSIDE RECORDS SUMMARY | 2024-08-03 13:05 | XMS_ITS ---
Author Organization Unknown Address [address] [place] [phone] Phone Care Team Providers Care Scallop Binder Name Role Phone ROBERT MONTANEZ Attending Unavailable [...] Code Code Sys tem Heart murmur 03/22/2023 [id number] SNOMED-CT Personal Care Team Section Performer Name Performer Role Active Date Inactive Da LISSETH Ott PCP - Primary care physician 2022-09-11 Imaging Narrative Notes [facility] 04/03/2023 11:51 [place] [id number] [place], [place] [address] RADIOLOGY REPORT Patient Number: [id number] Patient Name: HAYDEN GALARZA Type: O/P MR Number: [id number] : 1975 Age: 48 Sex: F Room #: Admit Date: 03/22/23 Discharge Date 03/22/23 Ordering Physician: ROBERT MONTANEZ Family Physician: ROBERT GOLDEN Second Physician: X-Ray Number : [id number] US ECHO W/ COLOR [id number] COMPLETE:03/22/23 14:44 TLS 41226 (REASON-ECHO COMPLTE: MURMUR See Scanned Image Attachment for Report Dictated By: Perfecto Initials: leanna [place] Date: 04/03/23 11:51 <<REPDIST>>
--- OUTSIDE RECORDS SUMMARY | 2024-08-03 13:05 | XMS_ITS ---
Author Organization Unknown Address [id number] [place] [phone] Phone Care Team Providers Care Dance Director Name Role Phone ROBERT MONTANEZ Attending Unavailable [...] PANE L - Collect Date/Time: 12/06/2023 07:48 [facility] ID: [id number] [place], [place], [id number] LOINC: 61444-1 Test Value Unit Reference Range Code Code [...] 8-9 LOINC ANION GAP 14 L=10 H=20 60952-3 LOINC OSMOLALITY 283 mOs/kG L=280 H=296 66830-1 LOINC BUN/CREAT 11.3 3097-3 LOINC CALCIUM 9.8 mg/dL L=8.3 H=10.5 71591-2 LOINC AST 28 U/L L=15 H=46 1920-8 LOINC ALT 26 U/L L=9 H=72 1742-6 LOINC ALKALINE PHOS 52 U/L L=38 H=126 6768-6 LOINC TOTAL BILI 1.1 mg/dL L=0.2 H=1.3 1975-2 LOINC ALBUMIN 4.7 G/dL L=3.5 H=5.0 1751-7 LOINC TOTAL PROTEIN 7.8 g/L L=6.3 H=8.2 2885-2 LOINC A/G RATIO 1.5 97630-0 LOINC AGE 48 43641-0 LOINC eGFR NON-AFR 81 ml/min eGFR AFR AMER 98 ml/min CBC W/ DIFF - Collect Date/T mary: 12/06/2023 07:48 [facility] ID: [id number] [place], [place], [id number] LOINC: 28723-0 Test Value Unit Reference Range Code Code System Flag WBC 6.6 10^3uL L=4.8 H=10.8 RBC 4.33 10^6uL L=4.20 H=5.40 HEMOGLOBIN 13.6 g/dL L=12.0 H=16.0 718-7 LOINC HEMATOCRIT 40.1 VOL% L=37.0 H=47.0 4544-3 LOINC MCV 92.6 fL L=81.0 H=99.0 MCH 31.4 pg L=27.0 H=32.0 MCHC 33.9 g/dL L=32.0 H=36.0 PLATELETS 313 10^3uL L=100 H=400 06586-4 LOINC RDW 12.1 % L=11.7 H=15.5 %GRAN 55.3 % L=40.0 H=70.0 83340-6 LOINC %LYMPH 32.7 % L=20.0 H=45.0 736-9 LOINC %MONO 8.8 % L=2.0 H=10.0 56738-0 LOINC %EOS 2.4 % L=0.0 H=6.0 713-8 LOINC %BASO 0.6 % L=0.0 H=3.0 706-2 LOINC #NEUT 3.6 10^3uL L=1.9 H=7.6 41448-8 LOINC #LYMPH 2.2 10^3uL L=0.9 H=4.9 68792-4 LOINC #MONO 0.6 10^3uL L=0.1 H=0.9 62129-0 LOINC #EOS 0.2 10^3uL L=0.0 H=0.6 712-0 LOINC #BASO 0.04 10^3uL L=0.00 H=0.10 74469-6 LOINC #IM GRANS 0.0 10^3uL L=0.0 H=7.0 90841-5 LOINC %IM GRANS 0.2 % L=0.0 H=5.0 73109-1 LOINC %NRB 0.0 L=0.0 H=0.2 98000-4 LOINC #NRB 0.000 L=0.000 H=0.012 74435-4 LOINC MANUAL DIFF NOT INDICATED RBC MORPH NOT INDICATED LIPID PANEL - Collect Date/T mary: 12/06/2023 07:48 [facility] ID: [id number] [place], [place], [id number] LOINC: 17815-4 Test Value Unit Reference Range Code Code System Flag FASTING YES CHOLESTEROL 122 mg/dL L=0 H=200 2093-3 LOINC TRIGLYCERIDE 100 mg/dL L=0 H=150 2571-8 [...]
--- NOTE | 2024-08-03 14:10 | PC.NURSE ---
1320: EMS HERE FOR PT TRANSFER. SAQIB DAMON RN
--- NOTE | 2024-08-03 15:24 | ED.CHESTPAIN ---
HPI - Chest Pain General Chief Complaint: Chest Pain Stated Complaint: Heart Rate Problem Time Seen by Provider: 08/03/24 13:15 Source: patient and RN notes reviewed Mode of arrival: ambulatory Limitations: no limitations History of Present Illness HPI narrative: 49-year-old female presents Express Care complaining of chest pain and palpitations. Patient says symptoms started around noon today. She felt like her heart was racing nose to heart rate was beating fast. Patient tried vagal maneuvers at home without relief. Patient came here for further evaluation. Patient denies any shortness of breath, dizziness, lightheadedness, syncope, nausea, vomiting, jaw pain, left arm pain. Patient denies any history the supraventricular tachycardia or atrial fibrillation but said she has been dealing with palpitations in the past but has not yet seen a dipper and baker yet. Related Data Home Medications ?Medication ?Instructions ?Recorded ?Confirmed ?Last Taken ?Type No Home Medications 05/02/21 08/03/24 Unknown History Allergies Allergy/AdvReac Type Severity Reaction Status Date / Time No Known Allergies Allergy Verified 08/03/24 13:18 Review of Systems Review of Systems: CONSTITUTIONAL: Denies fever, chills, or sweats. EYES: Denies visual changes, redness, or discharge. ENT: Denies rhinorrhea, congestion, sore throat, or otalgia. CARDIOVASCULAR: Positive for chest pain and palpitations. Negative for dizziness, lightheadedness, syncope, or edema. RESPIRATORY: Denies cough or dyspnea. GASTROINTESTINAL: Denies abdominal pain, nausea, vomiting, or diarrhea. GENITOURINARY: Denies dysuria or hematuria. SKIN: Denies rash or itching. MUSCULOSKELETAL: Denies back pain, joint pain, or myalgia. NEUROLOGIC: Denies headache, numbness, or weakness. PSYCHIATRIC: Denies anxiety or depression. All other systems reviewed are negative, except as documented in HPI. PMFSH Social History Social History Smoking status: Never smoker Alcohol intake: current Substance use: never Substance use type: does not use Comments At the time of my signature, I reviewed and agree with the nursing past medical, surgical, social, and family history. There is no relevant family history pertinent to the patient complaint. Exam Narrative: GENERAL: This is a well-nourished, well-developed adult, in no apparent distress. They are non ill-appearing, nontoxic appearing. Patient appears anxious. HEAD: normocephalic, atraumatic. EYES: Sclera clear/white. Conjunctiva normal. Vision is grossly intact. Extraocular movements intact EARS: External ears normal, Hearing grossly intact. NOSE: External nose normal THROAT: Mucous membranes moist NECK: Neck supple CARDIOVASCULAR: Tachycardic rate and rhythm without murmurs, gallops, or rubs. Radial pulse 2 +palpable. RESPIRATORY: Clear to auscultation. Breath sounds equal bilaterally. No wheezes, rales, or rhonchi. GASTROINTESTINAL: Abdomen soft, non-tender, nondistended. Bowel sounds are active. No hepato-splenomegaly, or palpable masses. No guarding. SKIN: warm, Dry, intact with no suspicious lesions or rash, good texture and turgor. NEURO: awake, alert, and oriented to person, place and time. There were no obvious focal neurologic abnormalities. EXTREMITIES: No edema noted. Course Course Emergency Course: EKG shows patient is in supraventricular tachycardia with a rate of 190. Patient is hemodynamically stable. Patient will be transferred to [facility] ER via ambulance for further evaluation management. Attempted vagal maneuvers including ice packs, coughing, and blowing the wrist around without success. Unable to obtain IV access the patient reports being a difficult stick. Level of Care: Express Care Visit Vital Signs Vital signs: Vital Signs Temperature 99.0 F 08/03/24 12:59 Pulse Rate 190 H 08/03/24 12:59 Respiratory Rate 22 H 08/03/24 12:59 Blood Pressure 142/102 H 08/03/24 12:59 Pulse Oximetry 99 08/03/24 12:59 Oxygen Delivery Room Air 08/03/24 12:59 Temperature 99.0 F 08/03/24 12:59 Pulse Rate 190 H 08/03/24 12:59 Respiratory Rate 22 H 08/03/24 12:59 Blood Pressure 142/102 H 08/03/24 12:59 Pulse Oximetry 99 08/03/24 12:59 Oxygen Delivery Room Air 08/03/24 12:59 Reviewed Transfer Transfered to: [facility] Transportation: ALS Transfer rationale: SVT, higher level care, Accepting physician: Dr. Richards MDM - Chest Pain MDM Narrative Medical decision making narrative: EKG shows SVT. No ischemic findings. Nonspecific ST changes. No reciprocal changes. Rate is 190. Patient is hemodynamically stable. Attempted multiple vagal maneuvers without success. Nursing staff attempted IV access without success. Patient says she is a hard stick and has had prior PICC line placements before. Was recommended this patient seek a higher level care and proceed immediately to the ER via ALS ambulance. Patient agreeable to go to [facility] and willing to go by ambulance. Call over to [facility] and spoke with Amanda Ospina who is aware this patient. Dr. Richards has accepted this patient for transfer. EMS also attempted IV access without success on the scene. Unable to administer any adenosine due to no IV access. Patient remained hemodynamically stable during her visit at the [facility]. [facility] transported patient over to [facility]. I spent 20 minutes critical care time being at the bedside with the patient continuing monitoring the patient for any change in her condition and reassessing vital signs. Patient remained on a cardiac technologist until care is transferred over to EMS. Multiple vagal maneuvers were attempted without success. IV access was attempted multiple times without success some nursing staff. Patient remained hemodynamically stable during her duration of her visit at the [facility] while waiting for EMS. Differential Diagnosis Differential diagnosis: Likely other (SVT, STEMI, atrial fibrillation RVR, tachycardia) ECG Data EKG #1: Attestation: I personally reviewed and interpreted this ECG as follows: ECG completion date: 08/03/24 ECG completion time: 13:05 Prior ECG tracings: not available for review EKG Interpretation: SVT, non-specific ST changes, RBBB (Incomplete) and right axis Critical Care Time Critical Care Time Critical Care Time: Yes Total Critical Care Time: 20 Discharge Plan Discharge Clinical Impression: Supraventricular tachycardia Patient Disposition: Acute Care Hospital Condition: Stable Patient Language: Ghanaian Prescriptions: No Action No Home Medications Follow-up/Referrals: UNKNOWN,DOCTOR [Primary Care Provider] - Time of Disposition: 13:24
== END 2024-08-03 13:30 | disposition short-term general hospital (02) ==
DX: I47.10 Supraventricular tachycardia, unspecified (principal); I10 Essential (primary) hypertension
CPT/HCPCS: 93005; 99215; G0463